=== PATIENT | male | born 1945 | race Caucasian/White ===

== ENCOUNTER 2017-01-14 13:32 | Inpatient (IN) | payer OTHER, MEDICARE ==
[~2017-01-14] VITALS: Ht 180.3 cm; Wt 101.2 kg
[2017-01-14 13:39] VITALS: BP_SYST 163
[2017-01-14] MEDS ORDERED: NACL 0.9% 1,000 ML IV ONE (14:15)
[2017-01-14] MEDS ORDERED: MORPHINE SULFATE 10 MG/ML VIAL IVP ONE (14:15)
[2017-01-14] MEDS ORDERED: DIPHENHYDRAMINE INJ 50 MG/ML VIAL IVP ONE (14:15)
[2017-01-14 14:39] LABS: BASOPHILS % (AUTO) 0.4 % (0.0-2.0); EOSINOPHILS % (AUTO) 0.2 % (0.0-4.0); HEMATOCRIT 47.2 % (36-54); HEMOGLOBIN 15.1 g/dL (14.0-18.0); LYMPHOCYTES # (AUTO) 0.8 K/uL (1.0-5.5); LYMPHOCYTES % (AUTO) 7.8 % (20.5-51.5); MEAN CORPUSCULAR HEMOGLOBIN 29 pg (27-31); MEAN CORPUSCULAR HGB CONC 32 % (32-36); MEAN CORPUSCULAR VOLUME 90 fL (79.0-98.0); MONOCYTES # (AUTO) 0.6 K/uL (0.0-1.0); MONOCYTES % (AUTO) 5.3 % (1.7-9.3); NEUTROPHILS # (AUTO) 9.3 K/uL (1.8-7.7); NEUTROPHILS % (AUTO) 86.3 % (40.0-70.0); PLATELET COUNT (AUTO) 206 K/uL (130-430); RED BLOOD CELL COUNT(AUTO) 5.26 MIL/uL (4.2-6.2); RED CELL DISTRIBUTION WIDTH 14.1 % (9.0-15.0); WHITE BLOOD COUNT (AUTO) 10.7 K/uL (4.8-10.8)
[2017-01-14 14:40] LABS: ANION GAP 7 (5-15); CHLORIDE 108 mmol/L (98-107); CREATININE 1.19 mg/dL (0.55-1.30); GLUCOSE 160 mg/dL (70-99); POTASSIUM 4.7 mmol/L (3.5-5.1); SODIUM SERUM 140 mmol/L (136-145); UREA NITROGEN, BLOOD 20 mg/dL (8-21)
[2017-01-14 14:47] LABS: PROTHROMBIN TIME 10.4 SECS (9.5-12.5)
[2017-01-14 14:51] LABS: CALCIUM 10.2 mg/dL (8.4-11.0)
[2017-01-14 14:53] LABS: ALANINE AMINOTRANSFERASE 37 U/L (12-78); ASPARTATE AMINOTRANSFERASE 26 U/L (10-37); LIPASE 137 U/L (73-393); TOTAL BILIRUBIN 0.8 mg/dL (0.0-1.0)
[2017-01-14 15:26] LABS: BILIRUBIN,URINE 1+ (NEGATIVE); BLOOD, URINE 3+ (NEGATIVE); CLARITY/URINE CLOUDY (CLEAR); COLOR,URINE BROWN (YELLOW); GLUCOSE,URINE NEGATIVE (NEGATIVE); KETONES,URINE 1+ (NEGATIVE); LEUKOCYTE ESTERASE ,URINE NEGATIVE (NEGATIVE); NITRITE, URINE NEGATIVE (NEGATIVE); PH,URINE 5.5 (5.0-8.0); PROTEIN URINE 2+ (NEGATIVE); UROBILINOGEN,URINE 0.2 (0.2-1.0)
[2017-01-14 16:00] LABS: BACTERIA,URINE MODERATE /HPF (None Seen); RBC,URINE >100 /HPF (0-3)
[2017-01-14 16:01] LABS: URINE AMORPHOUS URATE 2+ /HPF (None Seen)
[2017-01-14] MEDS ORDERED: BUDE6HFA INH (16:25)
[2017-01-14] MEDS ORDERED: [UNRECOGNIZED DRUG - OTHER] BOTH EYES (16:25)
[2017-01-14] MEDS ORDERED: LISI40TA4 PO (16:25)
[2017-01-14] MEDS ORDERED: LIP10 PO (16:25)
[2017-01-14] MEDS ORDERED: SITA1TAB9 PO (16:25)
[2017-01-14] MEDS ORDERED: ASA81 PO (16:25)
[2017-01-14] MEDS ORDERED: 0.45% NACL 1,000 ML IV SCH (16:45)
[2017-01-14 17:21] VITALS: BP_SYST 178
[2017-01-14] MEDS ORDERED: FLU VACC QS 2017-18(36MOS+)/PF 0.5 ML/SYR SYRINGE I.M. PRN (17:45)
[2017-01-14] MEDS ORDERED: MILK OF MAGNESIA 30 ML UDC PO PRN ×2 (19:00→19:30)
[2017-01-14] MEDS ORDERED: HYDROmorphone 2 MG/ML VIAL IVP PRN (19:15)
[2017-01-14] MEDS ORDERED: ACETAMINOPHEN 325 MG TABLET PO PRN (19:15)
[2017-01-14] MEDS ORDERED: GLUCOSE 15 GM GEL (in 37.5 GM TUBE) PO PRN ×2 (19:15)
[2017-01-14] MEDS ORDERED: ONDANSETRON HCL 4 MG/2 ML VIAL IVP PRN (19:15)
[2017-01-14] MEDS ORDERED: DEXTROSE 50%-WATER 50 ML DISP.SYRIN IVP PRN ×2 (19:15)
[2017-01-14] MEDS ORDERED: INSULIN REGULAR, HUMAN 100 UNITS/ML, 10 ML VIAL (novoLIN R) SUBCUT PRN (19:15)
[2017-01-14] MEDS ORDERED: cefTRIAXone 1 GM IVPB PREMIX 50 ML IV ONE (19:50)
[2017-01-14] MEDS ORDERED: cefTRIAXone 1 GM in D5W 50 ML IV SCH (20:00)
[2017-01-14] MEDS: KCL 20 mEq in 0.45% NS 1000 mL 1,000 ML IV SCH (20:12)
[2017-01-14 20:41] VITALS: BP_SYST 142
[2017-01-14] MEDS ORDERED: LISINOPRIL 20 MG TABLET PO SCH (21:00)
[2017-01-14] MEDS ORDERED: ATORVASTATIN 10 MG TABLET PO SCH (21:00)
[2017-01-14] MEDS ORDERED: BUDESONIDE/FORMOTEROL 160-4.5 mCg, 6 GM INHALER INH SCH (21:00)
[2017-01-15 02:03] VITALS: BP_SYST 102
[2017-01-15 03:37] VITALS: BP_SYST 137
[2017-01-15 07:51] LABS: BASOPHILS % (AUTO) 0.3 % (0.0-2.0); EOSINOPHILS # (AUTO) 0.1 K/uL (0.0-0.4); EOSINOPHILS % (AUTO) 0.8 % (0.0-4.0); HEMATOCRIT 40.1 % (36-54); HEMOGLOBIN 13.4 g/dL (14.0-18.0); LYMPHOCYTES # (AUTO) 0.9 K/uL (1.0-5.5); LYMPHOCYTES % (AUTO) 11.9 % (20.5-51.5); MEAN CORPUSCULAR HEMOGLOBIN 30 pg (27-31); MEAN CORPUSCULAR HGB CONC 34 % (32-36); MEAN CORPUSCULAR VOLUME 89 fL (79.0-98.0); MONOCYTES # (AUTO) 0.7 K/uL (0.0-1.0); MONOCYTES % (AUTO) 9.1 % (1.7-9.3); NEUTROPHILS % (AUTO) 77.9 % (40.0-70.0); PLATELET COUNT (AUTO) 186 K/uL (130-430); RED CELL DISTRIBUTION WIDTH 13.4 % (9.0-15.0); WHITE BLOOD COUNT (AUTO) 7.7 K/uL (4.8-10.8)
[2017-01-15 08:00] VITALS: BP_SYST 146
[2017-01-15 08:45] LABS: ANION GAP 10 (5-15); CALCIUM 9.2 mg/dL (8.4-11.0); CHLORIDE 107 mmol/L (98-107); CREATININE 1.08 mg/dL (0.55-1.30); GLUCOSE 115 mg/dL (70-99); POTASSIUM 4.4 mmol/L (3.5-5.1); SODIUM SERUM 141 mmol/L (136-145); UREA NITROGEN, BLOOD 16 mg/dL (8-21)
[2017-01-15] MEDS ORDERED: TAMSULOSIN HCL 0.4 MG CAP PO SCH (09:00)
[2017-01-15] MEDS ORDERED: metFORMIN HCL 500 MG TABLET PO SCH (09:00)
[2017-01-15] MEDS ORDERED: ATORVASTATIN 10 MG TABLET PO SCH (09:00)
[2017-01-15] MEDS ORDERED: FLUTICASONE/VILANTEROL 1 EACH BLST.W.DEV INH SCH (09:00)
[2017-01-15] MEDS ORDERED: ASPIRIN 81 MG TAB.CHEW PO SCH (09:00)
[2017-01-15] MEDS ORDERED: LISINOPRIL 20 MG TABLET PO SCH (09:00)
[2017-01-15] MEDS ORDERED: ENOXAPARIN SODIUM 40 MG/0.4 ML SYRINGE SUBCUT SCH (09:00)
[2017-01-15] MEDS: KCL 20 mEq in 0.45% NS 1000 mL 1,000 ML IV SCH (09:46)
[2017-01-15 12:02] VITALS: BP_SYST 143
[2017-01-15 16:33] VITALS: BP_SYST 152
[2017-01-15 17:24] VITALS: BP_SYST 135
== END 2017-01-15 17:45 | disposition home or self-care (01) | DRG 690 ==
LOC: SED 13:32 → SMU 16:45
PROVIDERS: ADMIT Family Medicine; ATTEND Family Medicine
DX: N10 Acute pyelonephritis (principal); J44.9 Chronic obstructive pulmonary disease, unspecified; N13.2 Hydronephrosis with renal and ureteral calculous obstruction; N13.4 Hydroureter; E11.9 Type 2 diabetes mellitus without complications; I10 Essential (primary) hypertension; Z79.899 Other long term (current) drug therapy; Z87.442 Personal history of urinary calculi; Z90.49 Acquired absence of other specified parts of digestive tract; Z79.82 Long term (current) use of aspirin; Z98.61 Coronary angioplasty status
CPT/HCPCS: 36415; 71010; 80048; 80053; 81000-TC; 82962; 83605; 83690-TC; 84484; 85025; 85610-TC; 85730-TC; 87040-TC; 87086; 93005; 96365; 96375; 99285; J0696; J1200; J1650; J1815; J1956; J2270; J3480; J7060

== ENCOUNTER 2020-03-01 09:58 | Emergency (ER) | payer OTHER, MEDICARE ==
[~2020-03-01] VITALS: Ht 182.9 cm; Wt 113.4 kg
[~2020-03-01 09:58] MED LIST: ASA81 PO; BUDE6HFA INH; LIP10 PO; LISI40TA4 PO; SITA1TAB9 PO; [UNRECOGNIZED DRUG - OTHER] BOTH EYES
--- NOTE | 2020-03-01 10:00 | NUR ---
Patient to ER bed 6 to gown for evaluation. Side rails up.
[2020-03-01 10:01] VITALS: BP_SYST 145
--- NOTE | 2020-03-01 10:02 | NUR ---
Patient presented to ER C/O fall. Patient ambulatory to ER, A&Ox4, skin abrasion to leg, redness to forehead, denies N/V/D, denies pain. Patient states he was yesterday at [facility] after fall; referred to ER for head CT. Patient states he fell yesterday while cleaning empty spa, fell on sidewalk, denies hitting head. patient states redness on face was from tree branch scratch.
--- NOTE | 2020-03-01 10:09 | NUR ---
ER Dr. CHAVIRA at bedside examining patient.
[2020-03-01 10:35] VITALS: BP_SYST 149
--- NOTE | 2020-03-01 10:35 | NUR ---
Patient given written and verbal discharge instructions and verbalizes understanding. ER MD discussed with patient the results and treatment provided. Patient in stable condition. ID arm band removed. No Rx given. Patient educated on pain management and to follow up with PMD. Pain Scale 0/10. Opportunity for questions provided and answered. Medication side effect fact sheet provided.
== END 2020-03-01 10:35 | disposition home or self-care (01) ==
LOC: SED 09:58
DX: S81.811A Laceration without foreign body, right lower leg, initial encounter (principal); S00.81XA Abrasion of other part of head, initial encounter; I48.91 Unspecified atrial fibrillation; J44.9 Chronic obstructive pulmonary disease, unspecified; I10 Essential (primary) hypertension; E11.9 Type 2 diabetes mellitus without complications; Z79.899 Other long term (current) drug therapy; Z79.82 Long term (current) use of aspirin; W01.198A Fall on same level from slipping, tripping and stumbling with subsequent striking against other object, initial encounter; Y93.89 Activity, other specified; Y92.89 Other specified places as the place of occurrence of the external cause; Y99.8 Other external cause status
CPT/HCPCS: 99282